=== PATIENT | female | born 1965 | race Caucasian/White ===

== ENCOUNTER → 2017-11-24 10:32 | Outpatient (CLI) | payer MEDICAID, SELFPAY ==
[2017-11-24 12:14] LABS: Hematocrit 38.8 % (37-47); Hemoglobin 12.5 g/dl (12.0-15.0); Mean Corp Hgb Conc 32.2 g/gl (32-36); Mean Corpuscular Hgb 28.3 pg (27.0-32.0); Mean Platelet Vol. 10.5 fl (6.2-12.0); Platelet Count 246 K/mm3 (150-450); RBC Distribution Width CV 13.7 % (11.6-14.6); RBC Distribution Width SD 43.8 fl (35.1-43.9); Red Blood Count 4.41 M/mm3 (4.2-5.4); White Blood Count 4.4 K/mm3 (4.4-11.0)
[2017-11-24 12:19] LABS: Scan Indicated on CBC? Y/N NO
[2017-11-24 12:44] LABS: Hemoglobin A1c 5.4 % (4.2-6.3)
[2017-11-24 12:59] LABS: Vitamin B12 1298 pg/mL (211-911)
[2017-11-24 13:05] LABS: AST(SGOT) 23 U/L (15-37); Alanine Aminotransfer ALT/SGPT 28 U/L (13-56); Albumin, Serum 3.6 g/dL (3.2-5.0); Alkaline Phosphatase 102 U/L (45-117); Anion Gap 7 (5-15); BUN 12 mg/dL (7-18); BUN/Creat Ratio 16.8 RATIO (10-20); Calcium,Total 8.7 mg/dL (8.5-10.1); Chloride 107 mmol/L (98-107); Creatinine, Serum 0.72 mg/dL (0.55-1.02); EST Glomerular Filtration Rate 92 mL/min (>60); Est Glom Filt Rate - Afr Amer 111 mL/min (>60); Ferritin 15 ng/mL (8-252); Globulin 3.6 g/dL (2.2-4.2); Glucose 76 mg/dL (74-106); Iron 70 ug/dL (50-170); Magnesium 1.9 mg/dL (1.6-2.6); Potassium 3.7 mmol/L (3.5-5.1); Protein, Total 7.2 g/dL (6.4-8.2); Sodium Level 143 mmol/L (136-145)
== END ==
PROVIDERS: Registered Nurse Nephrology; Family Provider Family Medicine; PCP Family Medicine; Visit Provider Family Medicine
DX: R73.02 Impaired glucose tolerance (oral) (principal); R40.0 Somnolence; I10 Essential (primary) hypertension; E61.9 Deficiency of nutrient element, unspecified; K90.9 Intestinal malabsorption, unspecified; E66.01 Morbid (severe) obesity due to excess calories
CPT/HCPCS: 36415; 80053; 82607; 82728; 82746; 83036; 83540; 83735; 85027

== ENCOUNTER 2018-04-17 09:15 | Emergency (ER) | payer MEDICAID, SELFPAY ==
[2018-04-17 09:17] VITALS: BP 150/103; PULSE 72; RESP 14; TEMP 35.5; O2SAT 98; BMI 44.1
--- NOTE | 2018-04-17 09:28 | ED.VISSUMM ---
- ER Visit Summary Date of Service: 04/17/18 Chief Complaint: Upper central abdominal pain with nausea and vomiting History of Present Illness: The patient is a 53 F who is status post gastric bypass surgery, Adan-en-Y, cholecystectomy and appendectomy presents with epigastric pain that she cannot describe other than she has never experienced pain like this associated with nausea vomiting dry heaves. Bowel movement this morning normal. Positive flatus. Emesis is greenish brown in color. There is no blood or coffee grounds. Patient denies fever, chills night sweats. She denies any URI symptoms. She denies any ocular, visual or auditory symptoms. She denies any cardiac symptoms. She denies shortness of breath, dyspnea exertion, orthopnea or PND. She denies any leg pain, swelling discoloration. Please read written note for complete detail Physical Examination: Vital signs noted and unremarkable blood pressure 150/103. She is not febrile. BMI 44.1. Head is atraumatic normocephalic. Pupils are equal round reactive. Extraocular muscles are intact. TMs are pearly white with landmarks noted. Nares patent with no drainage. Posterior pharynx without erythema or exudate. Uvula is midline. There is no dysphonia or dysphasia. Trachea is midline. There is no stridor with auscultation of the neck. Heart is regular without murmur, gallop or rub. S1 and S2 are normal. Lungs are clear to auscultation with good movement of air bilaterally. Patient has significant tenderness in the epigastric area. Negative Porter sign. No peritoneal findings. No palpable, pulsatile abdominal mass. There is no asymmetry, swelling, discoloration, leg vein distention, palpable cords or tenderness along the distribution of the deep venous system. Neuro exam is nonfocal. Test Results: CBC, electrolyte panel and hepatic profile and lipase are all normal Emergency Department Course and Treatment: Since patient has point tenderness in the epigastric she brought in a pale with emesis that is not remarkable for coffee grounds or blood. Will treat with Zofran for nausea vomiting and GI cocktail. Will reassess to determine if any further testing is indicated. I was informed by nursing staff that patient had recurrent vomiting and increased pain. She had no relief with GI cocktail. Patient was reexamined she has increased pain. She now has pain left upper quadrant, which she did not initially have. Therefore blood work was ordered and she was treated with 4 mg of morphine and 10 mg of Reglan for her pain and nausea vomiting. She was reassessed at 1310. She is no longer having pain. P.o. challenge was undertaken. I will was not informed of any vomiting by nursing staff; therefore, she will be discharged home Treatment Plan: Symptomatic treatment Disposition: Discharged home in stable improved condition Impression: 1. Epigastric pain with nausea and vomiting 2. History of Adan-en-Y, bariatric surgery. This note was generated with [employer] dictation software. It may contain incorrect words, spelling, and punctuation that were not noted in review of the chart prior to signing ED Disposition - Plan for ED Patient: Disposition: Home or Assisted Living Chief Complaint: Abd Pain Instructions: ED Nausea Vomiting Prescriptions: Metoclopramide [Reglan] 10 mg PO 4X/DAY #10 tab Referrals: Piotr Gonzales MD [Primary Care Provider] - As Needed
[2018-04-17] MEDS: Ondansetron 4 MG/2 ML Vial IV (09:36)
[2018-04-17] MEDS: Mag Hydrox/Al Hydrox/Simeth 30 ML UDC PO (10:01)
[2018-04-17 10:03] VITALS: BP 146/112; PULSE 70; RESP 18; O2SAT 99
[2018-04-17] MEDS: Morphine 4 MG/ML Syringe IV (11:18)
[2018-04-17] MEDS: Metoclopramide 10 MG/2 ML Vial IV (11:20)
[2018-04-17 11:21] LABS: Absolute Lymphocyte Count 1.51 X10^3/ul (0.83-4.51); Absolute Neutrophil Count 4.4 X10^3/uL (2.0-7.7); Basophil# 0.01 X10^3/uL; Basophil% 0.2 % (0-1); Eosinophil# 0.07 X10^3/uL; Eosinophils% 1.1 % (0-5); Hematocrit 42.7 % (37-47); Hemoglobin 14.2 g/dl (12.0-15.0); Lymphocyte # 1.51 X10^3/ul (4.0); Lymphocyte % 23.1 % (19-41); Mean Corp Hgb Conc 33.3 g/gl (32-36); Mean Corpuscular Volume 87.1 fL (81-99); Mean Platelet Vol. 10.8 fl (6.2-12.0); Monocyte# 0.52 X10^3/uL; Neutrophil # 4.41 X10^3/uL (2.7-7.7); Neutrophil % 67.4 % (47-70); POSITIVE COUNT NO; POSITIVE DIFFERENTIAL NO; POSITIVE MORPHOLOGY NO; Platelet Count 273 K/mm3 (150-450); RBC Distribution Width CV 13.7 % (11.6-14.6); RBC Distribution Width SD 43.5 fl (35.1-43.9); White Blood Count 6.5 K/mm3 (4.4-11.0)
[2018-04-17 11:30] LABS: ALB/GLOB Ratio 1.1 RATIO (0.9-2.4); AST(SGOT) 32 U/L (15-37); Alanine Aminotransfer ALT/SGPT 51 U/L (13-56); Albumin, Serum 4.5 g/dL (3.2-5.0); Alkaline Phosphatase 126 U/L (45-117); Anion Gap 10 (5-15); BUN 10 mg/dL (7-18); Calcium,Total 9.7 mg/dL (8.5-10.1); Chloride 106 mmol/L (98-107); Creatinine, Serum 0.83 mg/dL (0.55-1.02); EST Glomerular Filtration Rate 77 mL/min (>60); Est Glom Filt Rate - Afr Amer 93 mL/min (>60); Estimated Creatinine Clearance 77.98 ml/min; Globulin 4.2 g/dL (2.2-4.2); Glucose 93 mg/dL (74-106); Lipase 114 U/L (73-393); Potassium 3.7 mmol/L (3.5-5.1); Protein, Total 8.7 g/dL (6.4-8.2); Sodium Level 141 mmol/L (136-145)
[2018-04-17 12:15] VITALS: BP 118/71; PULSE 75; RESP 12; O2SAT 92
[2018-04-17 13:34] VITALS: PULSE 71; RESP 15; O2SAT 99
== END 2018-04-17 13:39 | disposition home or self-care (01) ==
PROVIDERS: Emergency Provider Emergency Medicine; Family Provider Family Medicine; PCP Family Medicine
DX: R10.13 Epigastric pain (principal); R11.2 Nausea with vomiting, unspecified; E66.9 Obesity, unspecified; Z98.84 Bariatric surgery status; Z90.49 Acquired absence of other specified parts of digestive tract
CPT/HCPCS: 80053; 83690; 85025; 96374; 96375; 96376; 99283; J7030; A4216; J2405

== ENCOUNTER → 2018-07-28 21:54 | Outpatient (CLI) | payer MEDICAID, SELFPAY ==
[2018-08-04 09:39] LABS: HPV HC, High Risk Negative (Negative)
== END ==
PROVIDERS: Family Provider Family Medicine; PCP Family Medicine; Visit Provider Obstetrics & Gynecology
DX: Z12.4 Encounter for screening for malignant neoplasm of cervix (principal)
CPT/HCPCS: 87624; 88175; G0145

== ENCOUNTER → 2018-09-11 09:31 | Outpatient (CLI) | payer MEDICAID, SELFPAY ==
--- NOTE | 2018-09-11 09:51 | BI_ITS ---
MAMMOGRAPHY - BILATERAL SCREENING REASON FOR EXAM: Female, 53 years old. Routine annual screening examination. PERTINENT HISTORY: Non-contributory. TECHNIQUE: Digital bilateral breast natalie (3D mammographic acquisition) in the CC and MLO projections. 2-D mediolateral oblique (MLO) and craniocaudad (CC) views of both breasts were obtained. CAD: Full Field Digital Mammography with Computer Added Detection was performed. COMPARISON: Comparison is made with prior study dated November 09, 2013. FINDINGS: Breast Composition: The breasts are heterogeneously dense, which may obscure small masses. There are no dominant masses or suspicious calcifications. No other significant abnormalities are identified. There has been no significant change since the prior study. BI/SCREENING MAMM (CAD), BILAT IMPRESSION: Stable bilateral screening mammogram. Yearly follow-up mammogram recommended. (A) ASSESSMENT CATEGORY: BIRADS Category 1: Negative. A letter regarding these results will be sent to the patient by the facility within 30 days. Approximately 10% of breast cancers are not detected by mammography. A normal mammogram should not delay biopsy of a clinically suspicious abnormality. [id number] Electronically Signed: Pardeep Dickey MD at 10:59 EST Tel [phone], Service support ,
== END ==
PROVIDERS: Family Provider Family Medicine; PCP Family Medicine; Referring Provider Obstetrics & Gynecology; Visit Provider Obstetrics & Gynecology
DX: Z12.31 Encounter for screening mammogram for malignant neoplasm of breast (principal)
CPT/HCPCS: 77063; 77067

== ENCOUNTER → 2019-02-24 11:52 | Outpatient (CLI) | payer MEDICAID, SELFPAY ==
[2019-02-24 12:45] LABS: Erythrocyte Sedimentation Rate 16 mm/hr (0-30)
[2019-02-24 13:07] LABS: CRP < 2.90 mg/L (0.0-3.0)
== END ==
PROVIDERS: Family Provider Family Medicine; PCP Family Medicine; Visit Provider Family Medicine
DX: M31.6 Other giant cell arteritis (principal)
CPT/HCPCS: 36415; 85652; 86140

== ENCOUNTER 2019-03-13 15:01 | Emergency (ER) | payer MEDICAID, SELFPAY ==
[2019-03-13 15:02] VITALS: BP 122/86; PULSE 87; RESP 16; TEMP 36.6; O2SAT 94; BMI 46.0
[2019-03-13 15:15] VITALS: BP 153/87; PULSE 83; RESP 20; O2SAT 96
--- NOTE | 2019-03-13 15:16 | EKG12_ITS ---
Test Reason : Blood Pressure : / mmHG Vent. Rate : 076 BPM Atrial Rate : 076 BPM P-R Int : 140 ms QRS Dur : 078 ms QT Int : 394 ms P-R-T Axes : 028 029 019 degrees QTc Int : 443 ms Normal sinus rhythm Normal ECG Confirmed by HELIO FARRELL, CHERYLE ([id number]), news assignment editor JASWANT BORDEN ([id number]) on 03/15/2019 1:45:27 PM Referred By: BRENNA Confirmed By:CHERYLE CADET MD
--- NOTE | 2019-03-13 15:17 | CT_ITS ---
STUDY: CT BRAIN WITHOUT CONTRAST REASON FOR EXAM: Female, 54 years old. Dizziness, fell RADIATION DOSAGE (If Supplied By Facility): CTDIvol = ( 44.99 ) mGy, DLP = ( 762.36 ) mGycm TECHNIQUE: Transaxial CT imaging of the brain was performed without administration of intravenous contrast material. Individualized dose optimization techniques were used for this CT. COMPARISON: No relevant priors. FINDINGS: Normal soft tissue structures. Normal calvarium. Normal size ventricles and extra-axial spaces for the patient's age. Normal white matter tracts of the cerebral hemispheres. Normal basal ganglia and thalami. Normal brainstem. Normal cerebellum. There is no intracranial hemorrhage. There are no findings of an acute ischemic infarction. Normal visualized paranasal sinuses. CT/Brain/Head without Contrast IMPRESSION: Normal unenhanced CT scan of the brain. Electronically Signed: Michael Govea MD at 15:51 EDT , Service support ,
[2019-03-13 15:32] LABS: Absolute Lymphocyte Count 1.59 X10^3/uL (0.83-4.51); Absolute Neutrophil Count 3.7 X10^3/uL (2.0-7.7); Basophil# 0.02 X10^3/uL; Basophil% 0.3 % (0-1); Eosinophil# 0.06 X10^3/uL; Hematocrit 40.6 % (37-47); Hemoglobin 13.5 g/dL (12.0-15.0); Lymphocyte # 1.59 X10^3/ul (4.0); Mean Corp Hgb Conc 33.3 g/dL (32-36); Mean Corpuscular Hgb 29.7 pg (27.0-32.0); Mean Corpuscular Volume 89.2 fL (81-99); Mean Platelet Vol. 9.6 fl (6.2-12.0); Monocyte# 0.46 X10^3/uL; Monocyte% 7.8 % (0-10); NRBC Flagged by Analyzer 0 % (0-5); Neutrophil # 3.73 X10^3/uL (2.7-7.7); Neutrophil % 63.6 % (47-70); Platelet Count 225 K/mm3 (150-450); RBC Distribution Width CV 13.4 % (11.6-14.6); Red Blood Count 4.55 M/mm3 (4.2-5.4); White Blood Count 5.9 K/mm3 (4.4-11.0)
[2019-03-13 16:14] VITALS: BP 143/85; PULSE 64; RESP 14; O2SAT 95
[2019-03-13 16:14] LABS: BUN 18 mg/dL (7-18); Creatinine, Serum 0.94 mg/dL (0.55-1.02); Estimated Creatinine Clearance 65.54 ml/min; Glucose 84 mg/dL (74-106)
[2019-03-13 16:15] LABS: Anion Gap 5 (5-15); BUN/Creat Ratio 19.2 RATIO (10-20); Calcium,Total 8.9 mg/dL (8.5-10.1); Chloride 111 mmol/L (98-107); EST Glomerular Filtration Rate 67 mL/min (>60); Est Glom Filt Rate - Afr Amer 81 mL/min (>60); Potassium 3.8 mmol/L (3.5-5.1); Sodium Level 140 mmol/L (136-145)
--- NOTE | 2019-03-13 16:29 | ED.VIS.GEN ---
History of Present Illness Chief Complaint: Dizziness Informant: Patient Onset: Today Narrative: Patient presents to the ED with sudden onset of dizziness that started 45 minutes prior to arrival. She states that it feels as though she is drunk. She states she feels unsteady walking. She did report some associated nausea and attempted to ambulate to the restroom, however was very unsteady. She denies any headache, visual changes, chest pain, shortness of breath, or syncope. 2 days ago, she completed a course of prednisone which was prescribed by her PCP to treat for potential temporal arteritis. She states that those symptoms have since resolved. She has no history of heart attack, stroke. Past Medical History - Allergies and Home Meds Allergies/Adverse Reactions: Allergies No Known Allergies Allergy (Verified 03/13/19 15:05) Primary Care Physician: Piotr Gonzales MD [Primary Care Provider] - Smoking Status: Never smoker Review of Systems General: Denies: Chills, Fever, Sweats Eyes: Denies: Visual changes - bilaterally, Diplopia ENT: Denies: Rhinorrhea, Sore throat Cardiovascular: Denies: Chest pain, Palpitations Respiratory: Denies: Dyspnea, Cough, Dyspnea on exertion Gastrointestinal: Reports: Nausea. Denies: Abdominal pain, Vomiting, Diarrhea, Melena, Hematochezia Genitourinary: Denies: Dysuria, Hematuria, Frequency Musculoskeletal: Denies: Back pain, Extremity Pain Skin: Denies: Rash, Wounds Neurological: Reports: - - Dizziness. Denies: Headache, Weakness, Numbness Physical Exam Vital Signs/Narrative: Vital Signs Temp Pulse Resp BP Pulse Ox 03/13/19 16:14 64 14 143/85 H 95 03/13/19 15:15 83 20 H 153/87 H 96 03/13/19 15:02 97.8 F 87 16 122/86 H 94 General: Well nourished, Well developed, No Acute Distress Head: Normocephalic, Atraumatic Eyes: Perrl, EOMI ENT: Moist mucous membranes, No rhinorrhea Neck: Supple, Nontender Cardiovascular: Regular rate, Regular rhythm, No murmurs Respiratory: No distress, CTA bilaterally, Chest nontender Abdomen: Soft, Nontender, Nondistended, Normal bowel sounds Back: Nontender, Normal Inspection Extremities: Nontender, No edema Skin: Normal color, No rash Neurological: Alert, Oriented x3, Cranial nerves II-XII grossly intact, Normal Strength, Normal Sensation, Normal DTR, Normal Gait, - - NIH 0. No focal neurological deficits. Negative Rombergs. Psychological: Normal affect, Normal Mood Diagnostic/Tx/Re-eval CT brain: No acute abnormality. CBC, BMP, troponin unremarkable. - EKG Initial EKG Interpretation: Sinus Rhythm - Ventricular rate [address] interval 140. QRS 78. QT 394. No STEMI., No Acute Injury Pattern - Medical Decision Making Patient presents to the ED with sudden onset of dizziness that started 45 minutes prior to arrival. Upon arrival, patient appears well nontoxic. She is hemodynamically stable. She has no focal neurological deficits on physical exam. Blood work, CT brain, and EKG are unremarkable. On repeat evaluation, patient's dizziness has significantly improved, however now she is describing a headache that starts at one latter-day and extends over her forehead to the other latter-day. She states this is similar to the headache that her PCP was treating her for. She does have a distant history of migraines 25 years ago, however admits she has had increased stress in her life recently in addition to increased social media/screen time. She was given Imitrex subcutaneously. She reports mild improvement of headache and would like to go home. She will follow-up with her PCP. At this time, I think it is safe for her to be discharged home. She was educated on signs/symptoms to return to the ED. She is provided discharge instructions. She is agreeable to plan Disposition: Home stable Impression: Dizziness ED Disposition - Plan for ED Patient: Disposition: Home or Assisted Living Diagnosis: Migraine, Dizziness Instructions: DIZZINESS, Unk Cause Referrals: Piotr Gonzales MD [Primary Care Provider] -
[2019-03-13] MEDS: SUMAtriptan 6 MG/0.5 ML Vial SC (16:40)
[2019-03-13 17:17] VITALS: BP 152/97; PULSE 64; RESP 15; O2SAT 98
== END 2019-03-13 17:25 | disposition home or self-care (01) ==
PROVIDERS: Emergency Provider Physician Assistant; Family Provider Family Medicine; PCP Family Medicine
DX: R42 Dizziness and giddiness (principal); G43.909 Migraine, unspecified, not intractable, without status migrainosus
CPT/HCPCS: 70450; 80048; 84484; 85025; 93005; 96372; 99284; A4216; J3030

== ENCOUNTER → 2019-04-01 15:11 | Outpatient (CLI) | payer MEDICAID, SELFPAY ==
[2019-03-13 15:02] VITALS: BMI 46.0
--- NOTE | 2019-04-01 15:26 | MRI_ITS ---
STUDY: MRI BRAIN WITHOUT CONTRAST REASON FOR EXAM: Female, 54 years old. Headache for 4 weeks, syncope TECHNIQUE: Standardized multiplanar fat and water weighted pulse sequences were obtained. COMPARISON: CT 03/13/2019 FINDINGS: Normal size of the ventricles and extra-axial spaces for the patient's age. Normal white matter tracts of the supratentorial brain. Normal bilateral basal ganglia. Normal thalami. There is no extra-axial fluid accumulation. Normal flow voids within the major intracranial circulation suggesting patency by spin echo criteria. Normal sella turcica, pituitary gland, infundibular stalk, optic chiasm and hypothalamus. Normal tectal plate and pineal gland. Normal midbrain, jaspreet and medulla. Normal cerebellum. Normal basal cisterns. Normal bilateral temporal bones. Normal bilateral internal auditory canals. No demonstrated orbital abnormality, within the constraints of a routine brain study. Normal visualized paranasal sinuses. Hyperostosis frontalis interna. Normal visualized soft tissue structures. Normal visualized upper cervical spine. MRI/Brain without Contrast IMPRESSION: No evidence of infarct or hemorrhage. No evidence of acute brain pathology. Electronically Signed: Roberto Valenzuela MD at 16:37 EDT Tel , Service support ,
== END ==
PROVIDERS: Family Provider Family Medicine; PCP Family Medicine; Referring Provider Family Medicine; Visit Provider Family Medicine
DX: R51 Headache (principal); R55 Syncope and collapse
CPT/HCPCS: 70551

== ENCOUNTER 2019-05-14 10:19 | Emergency (ER) | payer MEDICAID, SELFPAY ==
[2019-05-14 10:20] VITALS: BP 90/63; PULSE 54; RESP 22; TEMP 37.2; O2SAT 100; BMI 43.3
--- NOTE | 2019-05-14 10:57 | ED.VIS.GEN ---
History of Present Illness Chief Complaint: Upper Extremity Injury Informant: Patient Onset: Today Narrative: Patient presents to the ED with left wrist pain. About 45 minutes prior to arrival she tripped over a rug and fell landing onto her outstretched left arm. She denies hitting her head or LOC. She denies any other injury. She has not taken anything for analgesia. Past Medical History - Allergies and Home Meds Allergies/Adverse Reactions: Allergies No Known Allergies Allergy (Verified 05/14/19 10:20) Primary Care Physician: Piotr Gonzales MD [Primary Care Provider] - Jeramie Farley MD [STAFF PHYSICIAN] - Smoking Status: Never smoker Review of Systems General: Denies: Chills, Fever, Sweats Eyes: Denies: Visual changes - bilaterally, Diplopia ENT: Denies: Rhinorrhea, Sore throat Cardiovascular: Denies: Chest pain, Palpitations Respiratory: Denies: Dyspnea, Cough, Dyspnea on exertion Gastrointestinal: Denies: Abdominal pain, Nausea, Vomiting, Diarrhea, Melena, Hematochezia Genitourinary: Denies: Dysuria, Hematuria, Frequency Musculoskeletal: Reports: - - L wrist pain. Denies: Back pain, Extremity Pain Skin: Denies: Rash, Wounds Neurological: Denies: Headache, Weakness, Numbness Physical Exam Vital Signs/Narrative: Vital Signs Temp Pulse Resp BP Pulse Ox 05/14/19 10:20 99 F 54 L 22 H 90/63 100 General: Well nourished, Well developed, No Acute Distress Head: Normocephalic, Atraumatic Eyes: Perrl, EOMI ENT: Moist mucous membranes, No rhinorrhea Neck: Supple, Nontender Cardiovascular: Regular rate, Regular rhythm, No murmurs Respiratory: No distress, CTA bilaterally, Chest nontender Abdomen: Soft, Nontender, Nondistended, Normal bowel sounds Back: Nontender, Normal Inspection Extremities: - - Localized edema of her left wrist. There is obvious deformity. Notable decreased left wrist range of motion. Radial pulse 2+. Normal two-point discrimination. Normal capillary refill. No left elbow tenderness to palpation. Skin: Normal color, No rash Neurological: Alert, Oriented x3, Cranial nerves II-XII grossly intact, Normal Strength, Normal Sensation Psychological: Normal affect, Normal Mood Diagnostic/Tx/Re-eval - Medical Decision Making Patient presents to the ED following mechanical fall and left wrist injury. X-ray indicates dorsally displaced left radial fracture with angulation. There is also ulnar styloid fracture. Patient was initially given subcutaneous morphine for analgesia. Reduction was conducted in the ED. Hematoma block was achieved with 10 mL of bupivacaine. Left upper extremity was hung with gravity and reduced. Plaster AP splint was applied. Postreduction films indicate improvement. Patient was also given a [place] tablet for further analgesia. At this time, think is safe for the patient be discharged home. She already has an appointment set up with her orthopedic physician. She is educated on signs/symptoms to return to the ED. She is provided discharge instructions and agreeable to plan. Impression: Left displaced and angulated comminuted radial fracture. Left ulnar styloid fracture. Disposition: Home stable Procedures - Upper Extremity Splints Upper Extremity Splint: Plaster, Sling Location: Left ED Disposition - Plan for ED Patient: Disposition: Home or Assisted Living Diagnosis: Wrist fracture, left Instructions: RADIUS AND ULNA FX, Reduction Required Prescriptions: Hydrocodone Bitart/Apap 5-325 [[place] 5MG-325MG] 1 tab PO Q6H PRN PRN 3 Days #12 tab PRN Reason: Pain Prescription Printed Referrals: Piotr Gonzales MD [Primary Care Provider] - Jeramie Farley MD [STAFF PHYSICIAN] -
--- NOTE | 2019-05-14 11:00 | RAD_ITS ---
STUDY: X-RAY - LEFT WRIST REASON FOR EXAM: Female, 54 years old. Pain and deformity following a fall. TECHNIQUE: 2 view(s) of the wrist were obtained. COMPARISON: None. FINDINGS: Comminuted fracture of the distal radial metaphysis with extension to the articular surface with the dorsal displacement. Normal radiocarpal articulation. Normal distal radioulnar articulation. Normal carpal bones. Normal carpal articulations. Normal carpometacarpal articulation of the thumb. Normal second through fifth carpometacarpal articulations. Normal visualized metacarpal bones. Soft tissue swelling. RAD/Wrist 2 Views IMPRESSION: Comminuted fracture of the distal radial metaphysis with extension to the articular surface and dorsal displacement with diffuse soft tissue swelling. Electronically Signed: Pardeep Dickey, at 11:34 EDT , Service support ,
[2019-05-14] MEDS: morphine 10 MG/ML Syringe 4 MG SC (11:03)
[2019-05-14] MEDS: Ondansetron ODT 4 MG Tablet PO (12:38)
[2019-05-14] MEDS: Bupivacaine Mpf 0.5% 30 ML VIAL INFILT (12:39)
--- NOTE | 2019-05-14 13:45 | RAD_ITS ---
STUDY: X-RAY - LEFT WRIST REASON FOR EXAM: Female, 54 years old. Post reduction examination. TECHNIQUE: History view(s) of the wrist were obtained in a cast. COMPARISON: Comparison is made with prior examination done earlier today. FINDINGS: There is satisfactory reduction of the comminuted distal radial fracture. There is neutral facing. Nondisplaced avulsion fracture of the ulnar styloid. RAD/Wrist min 3 Views IMPRESSION: Satisfactory reduction of distal comminuted radial fracture. Electronically Signed: Pardeep Dickey, at 14:19 EDT , Service support ,
[2019-05-14] MEDS: HYDROcodone Bitartrate/Apap 5/325 Tablet PO (14:14)
== END 2019-05-14 14:24 | disposition home or self-care (01) ==
PROVIDERS: Emergency Provider Physician Assistant; Family Provider Family Medicine; PCP Family Medicine
DX: S52.592A Other fractures of lower end of left radius, initial encounter for closed fracture (principal); S52.612A Displaced fracture of left ulna styloid process, initial encounter for closed fracture; W18.09XA Striking against other object with subsequent fall, initial encounter; Y93.9 Activity, unspecified
CPT/HCPCS: 25605; 73100; 73110; 96372; 99284

== ENCOUNTER → 2019-06-17 08:34 | Outpatient (CLI) | payer MEDICAID, SELFPAY ==
--- NOTE | 2019-06-17 08:37 | CDU_ITS ---
Reason For Study: syncope Rt. Velocities/BP Lt. Velocities/BP Prox CCA 82.6/21.3 cm/sec. Prox CCA 112.1/27.4 cm/sec. Mid CCA 108.6/33.0 cm/sec. Mid CCA 113.3/36.0 cm/sec. Dist CCA 100.8/27.8 cm/sec. Dist CCA 74.0/24.9 cm/sec. Prox ICA 80.9/22.5 cm/sec. Prox ICA 88.8/34.8 cm/sec. Mid ICA 98.6/37.2 cm/sec. Mid ICA 87.6/42.1 cm/sec. Dist ICA 107.2/44.6 cm/sec. Dist ICA 87.6/33.5 cm/sec. Rt. ICA/CCA = 1.0. Lt. ICA/CCA = .8. Prox ECA 124.3/17.3 cm/sec. Prox ECA 102.3/18.8 cm/sec. Rt. Vert. 44.6/20.0 cm/sec. Lt. Vert. 58.1/22.5 cm/sec. Right Extracranial There is intimal thickening but no significant atherosclerotic plaque noted in the right common carotid artery. There is heterogeneous, irregular atherosclerotic plaque noted in the right internal carotid artery. The right internal carotid artery is very tortuous. There is heterogeneous, irregular atherosclerotic plaque noted in the right external carotid artery. Antegrade flow is noted in the right vertebral artery. Left Extracranial There is intimal thickening but no significant atherosclerotic plaque noted in the left common carotid artery. There is heterogeneous, irregular atherosclerotic plaque noted in the left internal carotid artery. There is heterogeneous, irregular atherosclerotic plaque noted in the left external carotid artery. Antegrade flow is noted in the left vertebral artery. Procedure Carotid Duplex [id number]. The exam was diagnostic. Exam performed in department. Interpretation Summary Mild (<50%) stenosis right extracranial internal carotid. Mild (<50%) stenosis left extracranial internal carotid. Flow within the vertebral arteries is antegrade bilaterally. Ordering Physician: Nicho Rojas Performed By: Migel Benz RVT
== END ==
PROVIDERS: Family Provider Family Medicine; PCP Family Medicine; Referring Provider Psychiatry & Neurology Neurology; Visit Provider Psychiatry & Neurology Neurology
DX: R55 Syncope and collapse (principal)
CPT/HCPCS: 93880

== ENCOUNTER 2019-07-02 07:17 | Day surgery (SDC) | payer MEDICAID, SELFPAY ==
[2019-07-02] VITALS (9 sets, daily range): BP systolic 88–110; BP diastolic 59–77; PULSE 50–70; RESP 16; TEMP 36.3–36.6; O2SAT 94–97; BMI 44.6
[2019-07-02] MEDS: Lactated Ringers 1,000 ML 100 ML IV (07:54)
--- NOTE | 2019-07-02 08:27 | H&P.OPEN ---
History of Present Illness Date of Admission: 07/02/19 The patient is a 54 year old F who presents for screening colonoscopy. She has never had a colonoscopy in the past. She denies any abdominal pain or blood in her stool. She has no family history of colon cancer. She is not on any anticoagulation. Past Medical/Surgical History - Planned Operation Planned Operative Procedure/s: COLONOSCOPY Date of Operative Procedure: 07/02/19 Permit Signed: Yes S.O.S: No Is This Patient Having a Total Joint: No - Previous Hospitalizations/Surgeries HX Hospitalizations: Yes HX of Surgeries: GASTRIC SLEEVE 2011. LEFT TOTAL KNEE 2006. C SECTIONS X 2 1989, 1991. TONSILLECTOMY . APPENDECTOMY 1974. R TKR 2013. PSYCH ADMISSION 2008. TUBAL LIGATION 1991. REVISION LEFT TOTAL KNEE 2015/[facility]. REVISION R TKR 10/11. L WRIST ORIF STEEL PLATE 06/12 STILL WEARING BRACE Any Problems With Anesthesia: Yes - NAUSEA You/Your Family Experience Fever (Hyperthermia) With Anes: No Cholinesterase deficiency: No - Cardiovascular Hx Chest Pain within Last 2 months: No Hx of Irregular Heartbeat and/or Afib: No Hx Heart Attack: No Hx Congestive Heart Failure: No Hx Rheumatic Fever: No Hx Hypertension: Yes - RESULTED WITH GASTRIC BYPASS Hx Internal Defibrillator: No Hx Pacemaker: No Hx Cardiac Catheterization: No Hx Cardiac Surgery/Stents/Etc.: No Hx Stress Test: Yes - 2011, STRESS TEST DONE AT [facility] HX Edema: No Hx Pain in Legs when Walking/Leg Cramps: No - Respiratory Chronic Cough: No HX of Shortness of Breath: No Hoarseness: No Hx Chronic Obstructive Pulmonary Disease (COPD): No Hx Asthma: No Hx Emphysema: No Hx Sleep Apnea: No CPAP: No BIPAP: No Hx Oxygen Use at Home: No Hx Respiratory Tract Infection/Cold (presently): No Do You Snore Loudly (louder than talking or can be heard): No Do You Often Feel Tired/ Fatigued/ Sleepy Dring Daytime?: No Has Anyone Observed You Stop Breathing During Sleep?: No Result (for STOP score): Negative Hx Smoking: No Smoking Status: Never smoker - Gastrointestinal Hx Gastroesophageal Reflux: Yes - OMEPRAZOLE Controlled With Meds: Yes Hx Gastrointestinal Disorders: Yes - GASTRIC SLEEVE FOR WEIGHT LOSS Hx Gastrointestinal Bleed: No Hx Ulcer: No Hx Hiatal Hernia: No Difficulty Chewing/Swallowing: No Recent Onset of Swallowing Problems: No Special diet followed at home: Yes - SMALL MEALS Hx Unplanned Weight Loss of 20#: No HX Unplanned Weight Gain of 20#: No - Neurological Hx Seizures: No HX Syncope/Blackout Spells/Unconsciousness: No Hx CVA/Stroke: No Hx Transient Ischemic Attacks (TIA): No Hx Multiple Sclerosis: No Hx Parkinson's Disease: No Hx Head/Neck Injury: No Hx Headaches: No Hx Back Injury/Pain: Yes - BULGING DISC Recent Onset of Speech Difficulty: No Restless Legs: No Does patient have nerve stimulator: No - Blood Disorder Hx Leukemia: No Bleeding Tendencies: No Hx Deep Vein Thrombosis: No Hx High Cholesterol: No Blood Transmitted Disease: No Hx Hepatitis: No Hx Cirrhosis: No Hx Anemia: No - TAKES IRON Hx Blood Disorders: No - Reproduction Is Patient Lactating: No Hx Hysterectomy: No Hx Tubal Ligation: Yes Are You Post Menopause: Yes - Genitourinary Hx Renal Disease: No - Musculoskeletal Hx Arthritis: Yes Hx Rheumatoid Arthritis: No Hx Gout: No Recent Onset of an Orthopedic Problem: No - CHRONIC KNEE PAIN - Endocrine Hx Diabetes: No Thyroid Disease: No Hx Steroid Therapy: Yes - INJECTION 06/2016 - Psycho/Social Hx Substance Use: No Hx Alcohol Use: No Hx Anxiety: No Hx Depression: Yes - PROZAC Mental Illness: No Hx Dementia: No - Miscellaneous Hx Cancer: No Recent Exposure to Contagious Disease: No Active MRSA: No Hx of C-Diff: No Any Loose Teeth: No - UPPER DENTURE Allergies No Known Allergies Allergy (Verified 06/30/19 15:39) - Discharge Is Pt Admitted From a Correction, or a Residential: No Who Could Help: After D/C, Where Do you Plan to Go: Return Home - Physical Exam Vitals/I&O's: Vital Signs Temp Pulse Resp BP Pulse Ox 97.4 F L 61 16 110/77 95 07/02/19 07:44 07/02/19 07:44 07/02/19 07:44 07/02/19 07:44 07/02/19 07:44 Oxygen Delivery Method Room Air Weight: 293 lb 14.019 oz Body Mass Index (BMI) 44.6 General: Alert, Oriented x3, Cooperative Lungs: Normal air movement Cardiovascular: Regular rate, Regular Rhythm Abdomen: Soft, Non Tender, Non-Distended Current Medications Lactated Ringer's () 1,000 mls @ 100 mls/hr IV .Q10H CHANTAL Last Admin: 07/02/19 07:54 Dose: 100 mls/hr Documented by: Assessment/Plan 54-year-old female for screening colonoscopy I explained endoscopy in detail to the patient. I explained the risks including but not limited to stroke or heart attack with anesthesia, perforation of the GI tract, bleeding, infection. I explained that any of these could necessitate further emergency surgery. The patient understands and all questions were answered sufficiently. The patient wishes to proceed with procedure. Tonny Dunham MD Pager: [facility] [address] [place] [address] [address] [place] [address] Office: Surgery Risks - Colonoscopy Risks Include but are not Limited To: Risks include but are not limited to: Bleeding, perforation requiring further surgery, inability to complete colonoscopy requiring barium enema.
--- NOTE | 2019-07-02 08:50 | OP.COLON_ITS ---
Patient Name: Yari Cummings Procedure Date: 07/02/2019 7:52 AM Date of : 1965 Age: 54 Procedure: Colonoscopy Indications: Screening for colorectal malignant neoplasm Providers: Tonny Dunham MD Referring MD: Piotr Gonzales Medicines: Monitored Anesthesia Care Patient Profile: This is a 54 year old female. Refer to note in patient chart for documentation of history and physical. Last Colonoscopy: none. The patient's first colonoscopy is today. Complications: No immediate complications. Procedure: Pre-Anesthesia Assessment: - Prior to the procedure, a History and Physical was performed, and patient medications and allergies were reviewed. The patient's tolerance of previous anesthesia was also reviewed. The risks and benefits of the procedure and the sedation options and risks were discussed with the patient. All questions were answered, and informed consent was obtained. Prior Anticoagulants: The patient has taken no previous anticoagulant or antiplatelet agents. ASA Grade Assessment: II - A patient with mild systemic disease. After reviewing the risks and benefits, the patient was deemed in satisfactory condition to undergo the procedure. After I obtained informed consent, the scope was passed under direct vision. Throughout the procedure, the patient's blood pressure, pulse, and oxygen saturations were monitored continuously. The colonoscope was introduced through the anus and advanced to the cecum, identified by appendiceal orifice and ileocecal valve. The colonoscopy was performed without difficulty. The patient tolerated the procedure well. The quality of the bowel preparation was good. Scope In: 8:31:56 AM Scope Withdrawal Time 0 hours 6 minutes 12 seconds Scope Out: 8:43:41 AM Total Procedure Duration Time 0 hours 11 minutes 45 seconds Findings: The entire examined colon appeared normal on direct and retroflexion views. Impression: - The entire examined colon is normal on direct and retroflexion views. - No specimens collected. Recommendation: - Discharge patient to home. - Resume previous diet. - Continue present medications. - Repeat colonoscopy in 10 years for screening purposes. Procedure Code(s): --- Professional --- 19814, PT, Colonoscopy, flexible; diagnostic, including collection of specimen(s) by brushing or washing, when performed (separate procedure) Diagnosis Code(s): --- Professional --- Z12.11, Encounter for screening for malignant neoplasm of colon CPT copyright 2017 [employer]. All rights reserved. The codes documented in this report are preliminary and upon coder operator review may be revised to meet current compliance requirements. Tonny Dunham MD 07/02/2019 8:50:35 AM This report has been signed electronically. Number of Addenda: 0 Note Initiated On: 07/02/2019 7:52 AM
== END 2019-07-02 09:47 | disposition home or self-care (01) ==
LOC: EN 07:18 → AC 07:19
PROVIDERS: Family Provider Family Medicine; PCP Family Medicine; Referring Provider Family Medicine; Visit Provider Surgery
PROC: 0DJD8ZZ Inspection of Lower Intestinal Tract, Via Natural or Artificial Opening Endoscopic (ICD-10-PCS; CPT 45378; principal; 2019-07-02 08:25)
DX: Z12.11 Encounter for screening for malignant neoplasm of colon (principal); K21.9 Gastro-esophageal reflux disease without esophagitis; F32.9 Major depressive disorder, single episode, unspecified; Z98.84 Bariatric surgery status
CPT/HCPCS: 45378; J7120